=== PATIENT | male | born 1975 ===

== ENCOUNTER → 2017-06-26 | Day surgery (SDC) | payer OTHER ==
[~2017-06-26] MED LIST: Midazolam 2 MG/2 ML VIAL ONE
[2017-06-26 19:49] VITALS: BMI 43.9
--- NOTE | 2017-06-27 04:45 | CARDCATH ---
PROCEDURE DATE: INDICATIONS: The patient is 42 years old, a morbidly obese male, who weighs above 300 pounds. He presented with atypical chest pain. Myoview stress test was positive for inferior ischemia. Cardiac catheterization was recommended. The procedure and its risks were explained to the patient who understood and agreed for the procedure. PROCEDURES: After local infiltration with 1% lidocaine, a 6-[place] sheath was placed in the right femoral artery. Left and right coronary angiography was performed with 5-[place] JL4 and JR4 diagnostic catheters. Left ventriculogram was performed with a 5-[place] pigtail catheter. The patient tolerated the procedure well without any complications. ANGIOGRAPHIC FINDINGS: Selective injection of the left coronary artery revealed the left main to be a normal vessel. Left main trifurcated into a very large caliber LAD, a large caliber circumflex artery and a medium caliber ramus intermedius artery. The entire left coronary circulation was angiographically unremarkable. Selective injection of the right coronary artery revealed a large caliber ectatic vessel that had sluggish flow of the dye; however, no significant disease. Left ventriculogram performed in the DUBO[place] projection revealed normal wall motion. Overall ejection fraction estimated at 65%. CONCLUSIONS: Consider small-vessel disease in the right coronary artery territory as the vessel is very ectatic and measures above 8 mm in diameter with sluggish flow. RECOMMENDATIONS: No coronary intervention is indicated at this time. Medical management including aspirin and calcium channel blockers are indicated. Robert Santacruz MD cc: .
== END | disposition home or self-care (01) ==
LOC: C.CATHLAB 13:26
PROVIDERS: ATTEND Specialist
DX: R07.89 Other chest pain (principal); I25.9 Chronic ischemic heart disease, unspecified; E66.01 Morbid (severe) obesity due to excess calories; Z68.41 Body mass index [BMI] 40.0-44.9, adult
CPT/HCPCS: 82948; 93458; J1644; J2250; Q9967